=== PATIENT | male | born 1995 | race Caucasian/White ===

== ENCOUNTER 2020-09-27 10:55 | Emergency (ER) | payer OTHER ==
[~2020-09-27] VITALS: Ht 185.4 cm; Wt 93.0 kg
[~2020-09-27 10:55] MED LIST: ERYT1OIN LEFTEYE
== END 2020-09-27 13:02 | disposition home or self-care (01) ==
LOC: ER 10:55
DX: S81.811A Laceration without foreign body, right lower leg, initial encounter (principal); W29.3XXA Contact with powered garden and outdoor hand tools and machinery, initial encounter
CPT/HCPCS: 12034; 73590; 99283-25

== ENCOUNTER 2020-10-15 13:03 | Emergency (ER) | payer SELFPAY ==
[~2020-10-15] VITALS: Ht 185.4 cm; Wt 93.0 kg
== END 2020-10-15 13:33 | disposition home or self-care (01) ==
LOC: ER 13:03
DX: S81.811D Laceration without foreign body, right lower leg, subsequent encounter (principal)

== ENCOUNTER → 2021-05-13 | Outpatient (CLI) | payer SELFPAY ==
[2021-05-15 13:11] LABS: CHLAMYDIA BY NAA Negative (Negative); GONOCOCCUS BY NAA Negative (Negative); TRICH VAG BY NAA Negative (Negative)
== END | disposition home or self-care (01) ==
LOC: LAB SHORT 15:06
PROVIDERS: Physician Assistant
DX: Z72.51 High risk heterosexual behavior (principal)
CPT/HCPCS: 87070; 87205; 87491; 87591; 87661

== ENCOUNTER 2024-01-18 14:19 | Emergency (ER) | payer OTHER ==
[~2024-01-18] VITALS: Ht 188 cm; Wt 90.7 kg
[2024-01-18 14:42] VITALS: BP 151/99
[2024-01-18] MEDS ORDERED: Ketorolac Tromethamine 15mg Vial IV ONE (16:00)
== END 2024-01-18 16:19 | disposition home or self-care (01) ==
LOC: ER 14:19
DX: M25.551 Pain in right hip (principal)
CPT/HCPCS: 73502; 99283-25